=== PATIENT | male | born 1995 ===

== ENCOUNTER 2018-07-29 13:25 | Emergency (ER) | payer MEDICARE, MEDICAID ==
[2018-07-29 14:14] VITALS: BMI 29.5
--- NOTE | 2018-07-29 14:28 | ED PDOC ---
Arrival/HPI - General Time Seen by Provider: 07/29/18 14:12 Historian: Patient - History of Present Illness Narrative History of Present Illness (Text): 07/29/18 14:14 22 y/o male, no significant pmh, psychiatric history including depression/ aggressive behavior/autistic with developmental disorder, living with the mother and attend the program today which he had an episode of unhappy event which he threw the table during the session today. Pt. stated that he is unhappy because the program staff ignore him which he hit his forehead table against the table by trying to go to sleep, staffs asking him what's the matter which he respond with throwing furniture. Pt. is currently pleasant and calmed , stated that he didn't do it purporsely and the mother is here with him. Mother stated that this is normal for him as he has aggressive behavior on and off for years which under the care by the psychiatrist. Pt. stated that he has no homicidal or suicidal ideation, no auditory or visual hallucination, no other medical or psychological complaints. Pt. has no complaints now. Pt. has no alcohol or drug abuse. Past Medical History - Provider Review Nursing Documentation Reviewed: Yes Family/Social History - Physician Review Nursing Documentation Reviewed: Yes Family/Social History: Unknown Family HX Allergies/Home Meds Allergies/Adverse Reactions: Allergies No Known Allergies Allergy (Verified 07/29/18 14:04) Home Medications: Home Meds Medication Instructions Recorded Confirmed Aripiprazole [Abilify] 20 mg PO DAILY 07/29/18 07/29/18 Citalopram [celeXA] 10 mg PO DAILY 07/29/18 07/29/18 Desmopressin Acetate [Ddavp] 0.2 mg PO DAILY 07/29/18 07/29/18 Guanfacine HCl [Intuniv] 2 mg PO DAILY 07/29/18 07/29/18 LORazepam [Ativan] 0.5 mg PO PRN PRN 07/29/18 07/29/18 Review of Systems - Review of Systems Constitutional: absent: Fatigue, Fevers Eyes: absent: Vision Changes ENT: absent: Hearing Changes Respiratory: absent: SOB, Cough Cardiovascular: absent: Chest Pain Gastrointestinal: absent: Abdominal Pain, Diarrhea, Nausea, Vomiting Skin: absent: Rash, Pruritis Neurological: absent: Headache, Dizziness, Speech Changes Psychiatric: absent: Anxiety, Depression, Suicidal Ideation Physical Exam Vital Signs Reviewed: Yes Temperature: Afebrile Pulse: Regular Respiratory Rate: Normal Appearance: Positive for: Well-Appearing, Non-Toxic, Comfortable Pain Distress: None Mental Status: Positive for: Alert and Oriented X 3 - Systems Exam Head: Present: Atraumatic, Normocephalic Pupils: Present: PERRL Extroacular Muscles: Present: EOMI Conjunctiva: Present: Normal Mouth: Present: Moist Mucous Membranes Neck: Present: Normal Range of Motion Respiratory/Chest: Present: Clear to Auscultation, Good Air Exchange. No: Respiratory Distress, Accessory Muscle Use Cardiovascular: Present: Regular Rate and Rhythm, Normal S1, S2. No: Murmurs Abdomen: No: Tenderness, Distention, Peritoneal Signs Back: Present: Normal Inspection Upper Extremity: Present: Normal Inspection. No: Cyanosis, Edema Lower Extremity: Present: Normal Inspection. No: Edema Neurological: Present: GCS=15, CN II-XII Intact, Speech Normal, Motor Func Grossly Intact, Gait Normal, Memory Normal Skin: Present: Warm, Dry, Normal Color. No: Rashes Psychiatric: Present: Alert, Oriented x 3, Normal Insight, Normal Concentration Medical Decision Making ED Course and Treatment: 07/29/18 14:40 -Pt. is medically clear and stable for the psychiatric evaluation. -I spoke to the GISELA Mao, will come to evaluate the patient. 07/29/18 15:17 -GISELA Mao evaluated the patient which she had [place] [facility] [place] she discussed with the psychiatrist tim, advised to discharge home. -Mother and patient agreed with the dispo plan, pt .is asymptomatic at this time. -Discharge home with education on follow up with your own pmd and psychiatrist within 2 days, return to the Er for any new or worsening signs or symptoms. - PA / RIB BUILDER / Resident Statement MD/DO has reviewed & agrees with the documentation as recorded. Disposition/Present on Arrival - Present on Arrival Any Indicators Present on Arrival: No History of DVT/PE: No History of Uncontrolled Diabetes: No Urinary Catheter: No History of Decub. Ulcer: No - Disposition Have Diagnosis and Disposition been Completed?: Yes Diagnosis: Psychiatric care Disposition: HOME/ ROUTINE Disposition Time: 15:19 Patient Plan: Discharge Patient Problems: Current Active Problems Problem Status Onset Psychiatric care Acute Condition: GOOD Additional Instructions: -Discharge home with education on follow up with your own pmd and psychiatrist within 2 days, return to the Er for any new or worsening signs or symptoms. Referrals: Kika Rich MD [Primary Care Provider] - Follow up with primary [facility] at [facility] [place] [Outside] - Follow up with primary Forms: WORK NOTE
[2018-07-29 15:59] VITALS: BP 134/72; PULSE 88; RESP 18; TEMP 98.3; O2SAT 99
== END 2018-07-29 15:30 | disposition home or self-care (01) ==
LOC: MERGE 13:25 → ED 13:25
DX: Z00.8 Encounter for other general examination (principal); F84.0 Autistic disorder